=== PATIENT | male | born 1955 | race Caucasian/White ===

== ENCOUNTER → 2016-09-13 | Outpatient (CLI) | payer OTHER ==
[~2016-09-13] MED LIST: ASPI81TA21 PO; CITA20TA9 PO; DAPA1TAB2 PO; EXEN0.048 SC; FENO145T26 PO; LISI-725 PO; LSN/2025 PO; Lovaza PO; NSP/1000 PO; OCTR30KI6 IM; OMEP20CA9 PO; OXYC-57 PO; WLLSR/150 PO; ZOLP10TA PO
[2016-09-13 11:31] LABS: ESTIMATED AVERAGE GLUCOSE 131 mg/dl; HA1C FLAG Normal (Normal)
[2016-09-13 11:48] LABS: ALT/SGPT 40 U/L (12-78); AST/SGOT 26 U/L (15-37); BLOOD UREA NITROGEN 26 mg/dl (7-18); BUN/CREATININE RATIO 18.8 (10-20); CALCIUM 8.8 mg/dl (8.5-10.1); CARBON DIOXIDE 30 mmol/L (21-32); CHLORIDE 104 mmol/L (98-107); PHOSPHORUS 2.4 mg/dl (2.5-4.9); POTASSIUM 3.8 mmol/L (3.5-5.1); SODIUM 142 mmol/L (136-145); TRIGLYCERIDES 797 mg/dl (0-150)
[2016-09-13 11:56] LABS: GLUCOSE 135 mg/dl (70-99)
== END | disposition home or self-care (01) ==
LOC: C.LABBC 07:28
DX: E11.9 Type 2 diabetes mellitus without complications (principal); E78.5 Hyperlipidemia, unspecified

== ENCOUNTER → 2016-11-16 | Outpatient (CLI) | payer OTHER ==
[~2016-11-16] MED LIST changes: -DAPA1TAB2 PO; +DAPA1TAB8 PO; -OCTR30KI6 IM; +SNDI30 IM
== END | disposition home or self-care (01) ==
LOC: C.PATHSPEC 16:12
PROVIDERS: ATTEND Dermatology
DX: L82.1 Other seborrheic keratosis (principal)

== ENCOUNTER → 2017-03-25 | Outpatient (CLI) | payer OTHER ==
[~2017-03-25] MED LIST changes: +DAPA1TAB2 PO; -DAPA1TAB8 PO; +OCTR30KI6 IM; -SNDI30 IM
[2017-03-25 10:37] LABS: BASO % 0.5 %; BASO ABS # 0.03 K/uL (0-0.2); COMPLETE YES; EOS % 2.5 %; HEMATOCRIT 38.6 % (42-52); IG% 0.5 %; LYMPH % 22.4 %; LYMPH ABS # 1.24 K/uL (1.2-3.4); MEAN CELL VOLUME 89.4 fL (80-100); MEAN CORPUSCULAR HEMOGLOBIN 28.5 pg (25-34); MEAN CORPUSCULAR HGB CONC 31.9 g/dl (32-36); MEAN PLATELET VOLUME 10.1 fL (7.4-10.4); MONO % 12.1 %; PLATELET COUNT 175 K/uL (130-400); RED BLOOD COUNT 4.32 M/uL (4.7-6.1); WHITE BLOOD COUNT 5.53 K/uL (4.8-10.8)
[2017-03-25 11:07] LABS: ESTIMATED AVERAGE GLUCOSE 137 mg/dl; HA1C FLAG Normal (Normal)
[2017-03-25 11:16] LABS: ALT/SGPT 32 U/L (12-78); AST/SGOT 24 U/L (15-37); BLOOD UREA NITROGEN 26 mg/dl (7-18); BUN/CREATININE RATIO 18.4 (10-20); CALCIUM 8.9 mg/dl (8.5-10.1); CARBON DIOXIDE 30 mmol/L (21-32); CHLORIDE 106 mmol/L (98-107); GLUCOSE 73 mg/dl (70-99); POTASSIUM 3.9 mmol/L (3.5-5.1); SODIUM 141 mmol/L (136-145)
[2017-03-25 11:19] LABS: ALB/GLOB RATIO 1.2 (0.9-2); ALKALINE PHOSPHATASE 39 U/L (45-117)
[2017-03-25 11:20] LABS: RATIO 11.8 mcg/mg (0-30.0)
[2017-03-25 11:21] LABS: CHOLESTEROL/HDL RATIO 3.4; PHOSPHORUS 2.5 mg/dl (2.5-4.9)
[2017-04-07 09:18] LABS: SEROTONIN** TC 29851 <10 ng/mL (56-244)
== END | disposition home or self-care (01) ==
LOC: C.LABBC 08:35
PROVIDERS: ATTEND Nurse Practitioner Family
DX: E55.9 Vitamin D deficiency, unspecified (principal); E11.9 Type 2 diabetes mellitus without complications; I10 Essential (primary) hypertension; E78.5 Hyperlipidemia, unspecified

== ENCOUNTER → 2017-04-04 | Outpatient (CLI) | payer OTHER ==
--- NOTE | 2017-04-06 14:32 | CODING QUERY NO DIAGNOSIS ---
: 1955 TREATMENT RENDERED WITHOUT A DIAGNOSIS To promote full compliance with coding requirements relating to patient care, physician participation is requested in all cases of rough rice tender uncertainty. Please assist us with providing a diagnosis/symptom for the test(s) below: A diagnosis/symptom was not documented on your Order. A valid diagnosis/symptom is required to bill all insurances. Please remember that we are unable to code a diagnosis of rule out, probable, possible, questionable, or suspected. Tests that require a diagnosis for DOS 04/04/17: * 5-HIAA+CREAT 24 HR URINE DIAGNOSIS: Provider Signature: Date: Thank you Gloria Santos [facility] Information Management Once completed, please kindly fax back to [phone] For questions please call [phone]
[2017-04-09 10:27] LABS: 5-HIAA 5.8 mg/24 h (<=6.0)
== END | disposition home or self-care (01) ==
LOC: C.LABBC 13:55
PROVIDERS: ATTEND Nurse Practitioner Family
DX: E34.0 Carcinoid syndrome (principal); C7A.012 Malignant carcinoid tumor of the ileum; C61 Malignant neoplasm of prostate

== ENCOUNTER → 2017-04-12 | Outpatient (CLI) | payer OTHER ==
[~2017-04-12] MED LIST changes: +OPTIRAY 320 IV PRN
--- NOTE | 2017-04-12 12:10 | DIAGNOSTIC IMAGING REPORT ---
(CHEST) THORAX WITH CLINICAL HISTORY: 61 years-old Male presenting with C7A.012, non-Hodgkin's lymphoma. TECHNIQUE: Multidetector CT imaging of the chest was performed after the administration of intravenous contrast. IV contrast: 93 mL of Optiray 320. A dose lowering technique was used consistent with the principles of ALARA (as low as reasonably achievable). COMPARISON: 04/12/2016. CT DOSE (mGy.cm): The estimated cumulative dose is 955.24 mGy.cm. FINDINGS: Independent Distributor topogram: Unremarkable. On soft tissue windows, normal thyroid and thoracic inlet. No axillary, supraclavicular, hilar, or mediastinal lymphadenopathy. Normal aorta. Normal heart size. No pericardial or pleural effusion. Hepatic steatosis. Subcentimeter hypodensity in the right kidney likely simple cyst. On lung windows, bandlike opacity at the right lung base, unchanged and likely scarring or atelectasis. Diminutive subpleural nodular opacity at the left apex is unchanged. Calcified granuloma also noted at the left apex. No new pulmonary nodule or infiltrate. Airways patent. On bone windows, degenerative changes of the spine. No destructive osseous lesion. IMPRESSION: 1. No evidence of intrathoracic metastatic disease. No lymphadenopathy. 2. Hepatic steatosis. Electronically signed by: Quirino Jones M.D. 04/12/2017 12:09 PM Dictated Date/Time: 04/12/2017 12:04 PM
--- NOTE | 2017-04-12 12:23 | DIAGNOSTIC IMAGING REPORT ---
ABD/PELVIS IV AND ORAL CONT CLINICAL HISTORY: 61 years-old Male presenting with C7A.012, non-Hodgkin's and trauma. TECHNIQUE: Multidetector CT of the abdomen and pelvis was performed after the administration of oral and intravenous contrast. IV contrast: 93 mL of Optiray 320. A dose lowering technique was used consistent with the principles of ALARA (as low as reasonably achievable). COMPARISON: 04/12/2016. CT DOSE (mGy.cm): The estimated cumulative dose is 955.24. FINDINGS: Devops topogram: Cholecystectomy clips noted. Lung bases: Lung bases clear. Normal heart size. No pericardial or pleural effusion. Liver: Normal morphology. Hepatic steatosis. No focal lesion. Patent hepatic vasculature. Biliary: No intrahepatic or extrahepatic biliary ductal dilatation. Gallbladder surgically absent. Pancreas: Moderate parenchymal atrophy predominantly of the head and body of the pancreas. Spleen: Normal. Adrenal glands: Normal. Kidneys and ureters: Subcentimeter hypodensity at the upper pole the right kidney, likely simple cyst. No hydronephrosis. Ureters normal. Bladder: Incompletely evaluated secondary to underdistention. Pelvic organs: The prostate is either atrophic or absent. Normal seminal vesicles. Bowel: Limited diverticulosis of the sigmoid colon. Postsurgical changes of right hemicolectomy. Small bowel immediately upstream to the anastomosis demonstrates feces, suggesting delayed transit. No convincing evidence of a bowel obstruction. This appearance is more prominent on the current exam in comparison to prior. Peritoneal cavity: No free fluid or intraperitoneal gas. Lymph nodes: Multiple enlarged mesenteric lymph nodes with associated stranding within the small bowel mesentery. The degree of enlargement and number of nodes is unchanged from prior. An index node in the right abdomen measures 10 mm in the short axis (series 6 image 224), previously 10 mm. An additional index node in the left mid abdomen measures 9 mm in the short axis, previously 8 mm (series 6 image 234). No new sites of lymphadenopathy. Vasculature: Aorta and IVC patent and normal in caliber. Abdominal wall: Diastasis of the rectus abdominis. A focus of fat in subjacent to the anterior abdominal wall in the epigastrium, likely fat necrosis. Small fat-containing inguinal hernias. Musculoskeletal: Degenerative changes of the spine. No destructive osseous lesion. IMPRESSION: 1. Stable appearance of prominent mesenteric lymph nodes with associated fat stranding. This could represent residual changes given the history of lymphoma, although this appearance can also be seen in the setting of mesenteric panniculitis. No new sites of lymphadenopathy. 2. Hepatic steatosis. Electronically signed by: Quirino Jones M.D. 04/12/2017 12:22 PM Dictated Date/Time: 04/12/2017 12:12 PM
== END | disposition home or self-care (01) ==
LOC: C.CTS 11:25
PROVIDERS: ATTEND Nurse Practitioner Family
DX: C7A.012 Malignant carcinoid tumor of the ileum (principal)

== ENCOUNTER → 2017-08-18 | Outpatient (CLI) | payer OTHER ==
[~2017-08-18] MED LIST changes: -DAPA1TAB2 PO; +DAPA1TAB8 PO; -NSP/1000 PO; -OCTR30KI6 IM; -OPTIRAY 320 IV PRN; +SNDI30 IM; +[UNRECOGNIZED DRUG - CODE] PO
[2017-08-18 10:59] LABS: BASO % 1.1 %; BASO ABS # 0.06 K/uL (0-0.2); EOS % 3.2 %; EOS ABS # 0.18 K/uL (0-0.5); HEMATOCRIT 38.2 % (42-52); HEMOGLOBIN 12.9 g/dL (14.0-18.0); IG# 0.03 K/uL (0.00-0.02); LYMPH % 28.5 %; MEAN CELL VOLUME 85.1 fL (80-100); MEAN CORPUSCULAR HEMOGLOBIN 28.7 pg (25-34); MEAN CORPUSCULAR HGB CONC 33.8 g/dl (32-36); MEAN PLATELET VOLUME 9.8 fL (7.4-10.4); MONO % 12.8 %; MONO ABS # 0.72 K/uL (0.11-0.59); NEUT % 53.9 %; NEUT ABS # 3.02 K/uL (1.4-6.5); PLATELET COUNT 164 K/uL (130-400); RED CELL DISTRIBUTION WIDTH CV 14.1 % (11.5-14.5); RED CELL DISTRIBUTION WIDTH SD 43.6 fL (36.4-46.3); WHITE BLOOD COUNT 5.61 K/uL (4.8-10.8)
[2017-08-18 11:22] LABS: ALT/SGPT 43 U/L (12-78); AST/SGOT 31 U/L (15-37); BLOOD UREA NITROGEN 33 mg/dl (7-18); CALCIUM 9.3 mg/dl (8.5-10.1); CARBON DIOXIDE 26 mmol/L (21-32); CHOLESTEROL 183 mg/dl (0-200); CREATININE 1.33 mg/dl (0.60-1.40); GLUCOSE 78 mg/dl (70-99); POTASSIUM 3.7 mmol/L (3.5-5.1); SODIUM 140 mmol/L (136-145)
[2017-08-18 11:25] LABS: LDL CHOLESTEROL (DIRECT) 96 mg/dl; PHOSPHORUS 2.9 mg/dl (2.5-4.9)
[2017-08-18 11:37] LABS: HEMOGLOBIN A1C 6.1 % (4.5-5.6)
== END | disposition home or self-care (01) ==
LOC: C.LABBC 07:43
DX: E78.5 Hyperlipidemia, unspecified (principal); I10 Essential (primary) hypertension; E11.9 Type 2 diabetes mellitus without complications; C85.90 Non-Hodgkin lymphoma, unspecified, unspecified site

== ENCOUNTER → 2017-08-29 | Outpatient (CLI) | payer OTHER | END | disposition home or self-care (01) | LOC: C.LABBC 08:11 | PROVIDERS: ATTEND Internal Medicine Hematology & Oncology | DX: C7A.012 Malignant carcinoid tumor of the ileum (principal) ==

== ENCOUNTER → 2017-10-03 | Outpatient (CLI) | payer OTHER ==
[2017-10-03 11:15] LABS: BASO % 1.2 %; BASO ABS # 0.07 K/uL (0-0.2); EOS ABS # 0.24 K/uL (0-0.5); HEMOGLOBIN 13.2 g/dL (14.0-18.0); IG# 0.05 K/uL (0.00-0.02); LYMPH % 28.6 %; LYMPH ABS # 1.73 K/uL (1.2-3.4); MEAN CELL VOLUME 85.3 fL (80-100); MEAN CORPUSCULAR HEMOGLOBIN 28.9 pg (25-34); MEAN CORPUSCULAR HGB CONC 33.8 g/dl (32-36); MEAN PLATELET VOLUME 10.2 fL (7.4-10.4); MONO % 12.7 %; MONO ABS # 0.77 K/uL (0.11-0.59); NEUT % 52.7 %; NEUT ABS # 3.19 K/uL (1.4-6.5); PLATELET COUNT 188 K/uL (130-400); RED CELL DISTRIBUTION WIDTH CV 14.1 % (11.5-14.5); RED CELL DISTRIBUTION WIDTH SD 43.6 fL (36.4-46.3); WHITE BLOOD COUNT 6.05 K/uL (4.8-10.8)
[2017-10-03 13:57] LABS: ALBUMIN 3.6 gm/dl (3.4-5.0); ALKALINE PHOSPHATASE 55 U/L (45-117); ALT/SGPT 49 U/L (12-78); AST/SGOT 31 U/L (15-37); BLOOD UREA NITROGEN 27 mg/dl (7-18); CALCIUM 8.8 mg/dl (8.5-10.1); CARBON DIOXIDE 23 mmol/L (21-32); GLUCOSE 152 mg/dl (70-99); POTASSIUM 3.3 mmol/L (3.5-5.1); SODIUM 139 mmol/L (136-145); TOTAL PROTEIN 7.3 gm/dl (6.4-8.2)
== END | disposition home or self-care (01) ==
LOC: C.LABBC 07:38
PROVIDERS: ATTEND Internal Medicine Hematology & Oncology
DX: C7A.012 Malignant carcinoid tumor of the ileum (principal)

== ENCOUNTER → 2017-11-02 | Outpatient (CLI) | payer OTHER ==
[~2017-11-02] MED LIST changes: +ASPI-319 PO; -ASPI81TA21 PO
[2017-11-02 11:13] LABS: BASO % 0.8 %; BASO ABS # 0.07 K/uL (0-0.2); EOS % 2.7 %; EOS ABS # 0.23 K/uL (0-0.5); HEMOGLOBIN 14.1 g/dL (14.0-18.0); IG# 0.13 K/uL (0.00-0.02); LYMPH % 23.6 %; LYMPH ABS # 2.01 K/uL (1.2-3.4); MEAN CELL VOLUME 86.7 fL (80-100); MEAN CORPUSCULAR HEMOGLOBIN 28.4 pg (25-34); MEAN CORPUSCULAR HGB CONC 32.8 g/dl (32-36); MEAN PLATELET VOLUME 10.5 fL (7.4-10.4); MONO % 12.7 %; MONO ABS # 1.08 K/uL (0.11-0.59); NEUT % 58.7 %; NEUT ABS # 4.99 K/uL (1.4-6.5); PLATELET COUNT 203 K/uL (130-400); RED CELL DISTRIBUTION WIDTH CV 14.2 % (11.5-14.5); RED CELL DISTRIBUTION WIDTH SD 44.6 fL (36.4-46.3); WHITE BLOOD COUNT 8.51 K/uL (4.8-10.8)
[2017-11-02 11:26] LABS: ALT/SGPT 40 U/L (12-78); AST/SGOT 29 U/L (15-37); BLOOD UREA NITROGEN 30 mg/dl (7-18); CALCIUM 9.5 mg/dl (8.5-10.1); CARBON DIOXIDE 30 mmol/L (21-32); CREATININE 1.43 mg/dl (0.60-1.40); GLUCOSE 124 mg/dl (70-99); POTASSIUM 3.7 mmol/L (3.5-5.1); SODIUM 138 mmol/L (136-145)
[2017-11-02 11:27] LABS: HEMOGLOBIN A1C 6.8 % (4.5-5.6)
== END | disposition home or self-care (01) ==
LOC: C.LABBC 07:41
DX: E11.9 Type 2 diabetes mellitus without complications (principal); M19.90 Unspecified osteoarthritis, unspecified site

== ENCOUNTER → 2018-01-27 | Outpatient (CLI) | payer OTHER ==
[~2018-01-27] MED LIST changes: +LISI20TA11 PO; -LSN/2025 PO
--- NOTE | 2018-01-27 12:56 | DIAGNOSTIC IMAGING REPORT ---
CT (CHEST) THORAX WITH CT DOSE: 1010.07 mGy.cm HISTORY: Carcinoid X TECHNIQUE: Multiaxial CT images of the chest were performed following the intravenous administration of contrast. A dose lowering technique was utilized adhering to the principles of ALARA. COMPARISON: None. FINDINGS: The lungs are clear. The mediastinal vascular structures are within normal limits. No mediastinal or hilar lymphadenopathy. No pleural effusion or pneumothorax. Limited views of the upper abdomen demonstrate a normal liver and spleen. Fatty infiltration of liver is stable. IMPRESSION: No significant abnormality identified within the chest. Fatty infiltration of liver. No change from the prior exam. The above report was generated using voice recognition software. It may contain grammatical, syntax or spelling errors. Electronically signed by: Hugo Magallon M.D. 01/27/2018 12:55 PM Dictated Date/Time: 01/27/2018 12:52 PM
--- NOTE | 2018-01-27 13:03 | DIAGNOSTIC IMAGING REPORT ---
CT ABD/PELVIS IV AND ORAL CONT CLINICAL HISTORY: Metastatic carcinoid tumor. Restaging procedure. COMPARISON STUDY: 04/12/2017 TECHNIQUE: Following the IV administration of 92 mL of Optiray-320, CT scan of the abdomen and pelvis was performed from the lung bases to the proximal femurs. Images are reviewed in the axial, sagittal, and coronal planes. IV contrast was administered without complication. A dose lowering technique was utilized adhering to the principles of ALARA. CT DOSE: FINDINGS: Lower chest: There is minor basilar atelectatic change Liver: There is hepatic steatosis. No focal hepatic masses are visualized. Gallbladder: Surgically absent Spleen: Normal in size and attenuation. Pancreas: Unremarkable. Adrenal glands: Unremarkable. Kidneys: There is a stable 7 mm right renal hypodensity likely representing a cyst. Bowel: There are no transition zones indicate bowel obstruction. No acute inflammatory changes are visualized. There is colonic diverticulosis. There are postsurgical changes of a right hemicolectomy. Peritoneum: There is no intraperitoneal free air or abdominal ascites. Vasculature: The abdominal aorta is normal in course and caliber. Adenopathy: There are mildly enlarged central mesenteric lymph nodes. The largest measures 14 x 10 mm. This is essentially unchanged from the preceding study. The additional nodes also remain similar. Pelvic viscera: The bladder, and pelvic viscera are unremarkable. Skeletal structures: No destructive osseous lesions are seen. IMPRESSION: 1. Mild mesenteric lymphadenopathy essentially unchanged from the preceding study 2. Hepatic steatosis Electronically signed by: Jono Cuevas M.D. 01/27/2018 1:02 PM Dictated Date/Time: 01/27/2018 12:51 PM
== END | disposition home or self-care (01) ==
LOC: C.CTS 12:22
PROVIDERS: ATTEND Nurse Practitioner Family
DX: C7A.012 Malignant carcinoid tumor of the ileum (principal)

== ENCOUNTER → 2018-02-16 | Outpatient (CLI) | payer OTHER ==
[2018-02-16 10:51] LABS: BASO % 1.1 %; BASO ABS # 0.07 K/uL (0-0.2); EOS % 3.3 %; EOS ABS # 0.22 K/uL (0-0.5); HEMATOCRIT 41.2 % (42-52); HEMOGLOBIN 13.6 g/dL (14.0-18.0); IG# 0.07 K/uL (0.00-0.02); LYMPH % 25.1 %; LYMPH ABS # 1.67 K/uL (1.2-3.4); MEAN CELL VOLUME 86.9 fL (80-100); MEAN CORPUSCULAR HEMOGLOBIN 28.7 pg (25-34); MEAN PLATELET VOLUME 10.8 fL (7.4-10.4); MONO % 14.9 %; MONO ABS # 0.99 K/uL (0.11-0.59); NEUT % 54.5 %; NEUT ABS # 3.64 K/uL (1.4-6.5); PLATELET COUNT 173 K/uL (130-400); RED CELL DISTRIBUTION WIDTH CV 14.1 % (11.5-14.5); WHITE BLOOD COUNT 6.66 K/uL (4.8-10.8)
[2018-02-16 11:00] LABS: HEMOGLOBIN A1C 6.5 % (4.5-5.6)
== END | disposition home or self-care (01) ==
LOC: C.LABBC 07:27
DX: E11.9 Type 2 diabetes mellitus without complications (principal); E78.5 Hyperlipidemia, unspecified